=== PATIENT | female | born 1945 | race Caucasian/White ===

== ENCOUNTER 2019-05-07 05:50 | Observation (INO) ==
--- NOTE | 2019-05-07 06:20 | DR.GENAD ---
HPI Time Seen Time Seen by Provider: 05/07/19 06:20 PCP Primary Care Physician: KENAN HPI Comment HPI Comment: PATIENT IS 73YR OLD FEMALE HERE IN ER AFTER SHE HAD SYNCOPAL EPISODE AND FEEL TWICE. PATIEN IS STILL IMBALANSE AND UNSTEADY CURRENTLY. NO FE OC, DYSURIA OR CHEST PAIN. HISTORY OF DM AND HYPERTENSION. COMPLAINIG OF BACK PAIN AND RIGHT RIB PAIN. HAD VERTIGO ATTACK PREVIOUSLY. Complaint/Symptoms Chief Complaint Doctors Comments: FELL, SYNCOPAL EPIDSODE. Chief Complaint:: PT IN ED VIA WHEELCHAIR WITH C/O PASSING OUT AND FALLING. PT STATES SHE GOT UP TO GO TO THE BATHROOM AND CHECK BLOOD SUGAR AND PASSED OUT AFTER COMING OUT OF BATHROOM. GOT UP AND PASSED OUT AND FELL AGAIN. Nurses notes reviewed Nurses Notes Review: Yes Source History Provided: Patient and Family Member Mode of Arrival Mode of Arrival: Wheelchair Timing Onset of Chief Complaint: 05/07/19 Came on: Suddenly Duration Duration: Since Onset Duration: Hours Severity Severity: Moderate (BACK PAIN.) Modifying Factors Worsens:: MOVEMENT Improves:: REST. Associated Signs and Symptoms Associated Signs and Symptoms: ATAXIA. Other History Other History: HTN, DM. PMH PMH Past Medical History: Yes Past Medical History: Arthritis, Diabetes and Hypertension Past Surgical History: Yes Surgical History: Mastectomy Past Surgical History Comment: RIGHT EYE RIGHT MASTECTOMY Family History History of Family Medical Conditions: Yes Family Medical History: Diabetes Mellitus, Cancer, [place], Coronary Artery Disease, Heart Failure and Hypertension Social History Does patient currently use any type of tobacco product: No Have you used tobacco products in the last 12 months: No Type of Tobacco Use: None Does any household member use tobacco: No Alcohol Use: None Do you use any recreational Drugs:: No Lives With: Family Lives Where: Home infectious screening In the last 2 months have you had wt loss of >10#?: NO Have you had fever, night sweats or hemotysis?: No Have you traveled outside the country in the last 6 months?: No Isolation: Standard ROS Review of Systems Constitutional: See HPI, Weakness and Fatigue; negative Fever Eyes: No Symptoms Reported and See HPI; negative Eye Pain, Blurred Vision, Photophobia and Diplopia ENTM: See HPI and Ear Pain (left ear pain); negative Nose Discharge, Nose Con gestion and Throat Pain Respiratoy: No Symptoms Reported, See HPI and Short of Breath (on exacertion); negative Wheezing Cardiovascular: No Symptoms Reported Gastrointestinal/Abdominal: No Symptoms Reported and See HPI; negative Abdominal Pain, Constipation, Diarrhea, Nausea and Vomiting Genitourinary: No Symptoms Reported and See HPI; negative Dysuria, Frequency and Hematuria Neurological: See HPI and Weakness; negative Headache and Dizziness Musculoskeletal: See HPI, Back Pain (UPPER AND LOWER BACK PAIN.) and Rib(s) (LEFT LOWER RIB CAGE PAIN) Integumentary: No Symptoms Reported and See HPI; negative Change in Color, Rash and Juandice Hematologic/Lymphatic: No Symptoms Reported and See HPI Endocrine: No Symptoms Reported and See HPI; negative Increased Thirst, Increased Urine and Decreased Appetite Psychiatric: No Symptoms Reported and See HPI All Other Systems: Reviewed and Negative PE Vital Signs Vitals: Temperature 97.8 F Pulse Rate 72 Respiratory Rate 20 Blood Pressure 156/73 O2 Sat by Pulse Oximetry 99 General Limitations: No Limitations General Appearance: Alert and In No Apparent Distress Head Head Exam: Normal Inspection Eyes Eye exam: Normal Appearance and PERRL; negative Scleral Icterus and Conjunctival Injection ENT ENT Exam: Normal Exam, Normal Oropharynx, Normal External Ear Exam and TM's Normal Bilaterally External Ear Exam: Normal External Inspection; negative Mastoid Tenderness TM/Canal Exam: Bilateral: Normal Nose Exam: Normal Nose Exam; negative Sinus Tenderness, Nasal Deviation and Septal Hematoma Mouth Exam: Normal Inspection; negative Lip Swelling and Tongue Swelling Throat Exam: Normal Inspection; negative Tonsillar Erythema, Tonsillomegaly and Tonsillar Exudate Neck Neck Exam: Normal Inspection and Trachea Midline; negative Tenderness and Lymphadenopathy Chest Chest Inspection: Normal Inspection and Symmetric Chest Wall Rise; negative Tenderness Respiratory Respiratory Exam: Normal Lung Sounds Bilat; negative Accessory Muscle Use, Chest Wall Tenderness and Respiratory Distress Respiratory Exam: Bilateral: Rhonchi and Lower: Rhonchi Cardiovascular Cardiovascular Exam: Regular Rate, Normal Rhythm and Normal Heart Sounds; negative Systolic Murmur and Diastolic Murmur Abdominal Exam Abdominal Exam: Normal Inspection, Normal Bowel Sounds and Soft; negative Tenderness Extremities Extremities Exam: Normal Inspection and Normal Capillary Refill; negative Tenderness and Calf Tenderness Back Back Exam: Normal Inspection and Other (SACRAL AND LEFT UPPER T SPINE TENDERNESS.) Neurologic Neurological Exam: Alert, Oriented X3, CN II-XII Intact and Normal Gait (ATAXIA, IMBALANCE.) Psychiatric Psychiatric Exam: Normal Affect and Normal Mood Skin Skin Exam: Warm, Dry, Intact and Normal Color MDM Additional Information Additional Information Obtained From: Family Differential Diagnosis Differential Diagnosis: SYNCOPAL EPISODE, ATAXIA, BACK PAIN, HYPOGLYCEMIA. COURSE Treatment Treatment: SEE ORDERS. BLOOD GLUCOSE NOT LOW. Consultation Consultation Comments: DISCUSSED PATIENT WITH DR. GRAYSON. HE WILL ADMIT PATIENT. Education/Counseling Education/Counseling: Patient and Family Educated On: Diagnosis ROR Labs Reviewed Laboratory Results Reviewed?: Yes Result Diagrams: 05/07/19 06:52 05/07/19 06:52 Laboratory: WBC 9.5 X10^3/uL (3.6-10.0) 05/07/19 06:52 RBC 4.45 X10^6/uL (3.5-5.4) 05/07/19 06:52 Hgb 13.0 g/dL (12.0-16.0) 05/07/19 06:52 Hct 37.8 % (36.0-47.0) 05/07/19 06:52 MCV 84.9 fL (80.0-100.0) 05/07/19 06:52 MCH 29.2 pg (27.0-34.0) 05/07/19 06:52 MCHC 34.5 g/dL (33.0-35.0) 05/07/19 06:52 RDW 12.7 % (11.6-16.5) 05/07/19 06:52 Plt Count 321 X10^3/uL (150.0-450.0) 05/07/19 06:52 MPV 8.8 fL (7.4-11.0) 05/07/19 06:52 Neut % (Auto) 78.5 % (42.0-75.0) H 05/07/19 06:52 Lymph % (Auto) 13.3 % (21.0-51.0) L 05/07/19 06:52 Love % (Auto) 6.3 % (0.0-13.0) 05/07/19 06:52 Eos % (Auto) 1.5 % (0.9-2.9) 05/07/19 06:52 Baso % (Auto) 0.4 % (0.2-1.0) 05/07/19 06:52 Neut # (Auto) 7.4 x10^3/uL (2.2-4.8) H 05/07/19 06:52 Lymph # (Auto) 1.3 X10^3/uL (1.3-2.9) 05/07/19 06:52 Love # (Auto) 0.6 x10^3/uL (0.3-0.8) 05/07/19 06:52 Eos # (Auto) 0.1 x10^3/uL (0.0-0.2) 05/07/19 06:52 Baso # (Auto) 0.0 X10^3/uL (0.0-0.1) 05/07/19 06:52 Absolute Nucleated RBC 0.0 /100WBC 05/07/19 06:52 Sodium 136 mmol/L (136-145) 05/07/19 06:52 Corrected Sodium TNP 05/07/19 06:52 Potassium 3.8 mmol/L (3.5-5.1) 05/07/19 06:52 Chloride 100 mmol/L (98-107) 05/07/19 06:52 Carbon Dioxide 26.2 mmol/L (21-32) 05/07/19 06:52 BUN 12 mg/dL (7-18) 05/07/19 06:52 Creatinine 1.11 mg/dL (0.55-1.02) H 05/07/19 06:52 Est GFR (MDRD) Af Amer > 60 (>60) 05/07/19 06:52 Est GFR (MDRD) Non-Af 51 (>60) L 05/07/19 06:52 Glucose 106 mg/dL (65-99) H 05/07/19 06:52 Calcium 8.6 mg/dL (8.5-10.1) 05/07/19 06:52 Corrected Calcium TNP 05/07/19 06:52 Total Bilirubin 0.50 mg/dL (0.2-1.0) 05/07/19 06:52 AST 23 Units/L (15-37) 05/07/19 06:52 ALT 19 Units/L (12-78) 05/07/19 06:52 Alkaline Phosphatase 49 Units/L (46-116) 05/07/19 06:52 Creatine Kinase 265 Units/L (26-192) H 05/07/19 06:52 CK-MB (CK-2) 10.1 ng/mL (0-4.0) H* 05/07/19 06:52 CK/CKMB % Calc 3.8 % (<4) 05/07/19 06:52 Troponin I < 0.02 ng/mL (0-1.5) 05/07/19 06:52 Total Protein 7.3 g/dL (6.4-8.2) 05/07/19 06:52 Albumin 3.5 g/dL (3.4-5.0) 05/07/19 06:52 Globulin 3.8 g/dL (2.5-4.5) 05/07/19 06:52 Albumin/Globulin Ratio 0.9 Ratio (1.1-2.1) L 05/07/19 06:52 XRAY XRAY Interpreted by: Radiologist XRAY Findings: REPORT NOTED AND DISCUSSED WITH PATIENT AND FAMILY. EKG Rate: 75 Husser: Normal Rhythm: NSR Block: None Hypertrophy: LVH ST: Old, Infarct and Nonsp (ABNORMAL R-WAVE PROGRESSION.) Opioid Opioid Risk Tool Age (Lenny box if 16-45): No History of Preadolescent Sexual Abuse: No Total: 0 Total Score Risk Category: Low Risk Copyright: Elroy POE predicting aberrant behaviors Diagnosis Discharge Problem: Ataxia Episode of syncope Qualifiers: Syncope type: unspecified Qualified Code(s): R55 - Syncope and collapse Back pain Qualifiers: Back pain location: low back pain Chronicity: acute Back pain laterality: bilateral Sciatica presence: without sciatica Qualified Code(s): M54.5 - Low back pain Instructions Forms: Excuse From Work Patient Portal
[2019-05-07 06:56] LABS: BASOPHILS % (AUTO) 0.4 % (0.2-1.0); EOSINOPHILS # (AUTO) 0.1 x10^3/uL (0.0-0.2); EOSINOPHILS % (AUTO) 1.5 % (0.9-2.9); HEMATOCRIT 37.8 % (36.0-47.0); LYMPHOCYTES # (AUTO) 1.3 X10^3/uL (1.3-2.9); LYMPHOCYTES % (AUTO) 13.3 % (21.0-51.0); MEAN CORPUSCULAR HEMOGLOBIN 29.2 pg (27.0-34.0); MEAN CORPUSCULAR HGB CONC 34.5 g/dL (33.0-35.0); MEAN CORPUSCULAR VOLUME 84.9 fL (80.0-100.0); MEAN PLATELET VOLUME 8.8 fL (7.4-11.0); MONOCYTES # (AUTO) 0.6 x10^3/uL (0.3-0.8); MONOCYTES % (AUTO) 6.3 % (0.0-13.0); NEUTROPHILS # (AUTO) 7.4 x10^3/uL (2.2-4.8); NEUTROPHILS % (AUTO) 78.5 % (42.0-75.0); PLATELET COUNT 321 X10^3/uL (150.0-450.0); RED BLOOD COUNT 4.45 X10^6/uL (3.5-5.4); RED CELL DISTRIBUTION WIDTH 12.7 % (11.6-16.5); WHITE BLOOD COUNT 9.5 X10^3/uL (3.6-10.0)
[2019-05-07 07:13] LABS: BLOOD UREA NITROGEN 12 mg/dL (7-18); CALCIUM 8.6 mg/dL (8.5-10.1); CARBON DIOXIDE 26.2 mmol/L (21-32); CHLORIDE 100 mmol/L (98-107); CREATININE 1.11 mg/dL (0.55-1.02); SODIUM 136 mmol/L (136-145); TROPONIN I < 0.02 ng/mL (0-1.5); eGFR NON BLACK RACES 51 (>60)
--- NOTE | 2019-05-07 07:22 | CT ---
HISTORYSyncope, fall, head injurySTUDYHEAD (TRAUMA)Technique: Axial noncontrast images with coronal and sagittal reformats. Dose reduction procedures were used with mA/kv adjusted for body size.COMPARISONNoneFINDINGSThe ventricles, cortical sulci, and other CSF spaces are mildly enlarged consistent with mild generalized atrophy likely age related. There are no areas of abnormal attenuation to suggest recent or remote CVA, hemorrhage, contusion, mass lesion, or extra-axial fluid collection. The calvarium is intact.IMPRESSIONNo acute intracranial abnormalityAtrophy likely age relatedElectronically signed by: MICHAELA PANDEY (May 07, 2019 07:21:11)
--- NOTE | 2019-05-07 07:25 | CT ---
HISTORYFall, back painSTUDYTHORACIC SPINE W/O CON technique: Axial noncontrast images with coronal and sagittal reformats. Dose reduction procedures were used with mA/kv adjusted for body size.COMPARISONNoneFINDINGSThe bones are osteopenic. The alignment is normal. There is mild compression of the superior endplate of T5 age indeterminate. Very mild anterior wedge compression T7 age indeterminate. The remainder of the vertebral bodies are of average height. Disc spaces are preserved except for narrowing at T9-10 and T10-11 levels. The pedicles, spinous processes, and posterior elements are intact as are the visualized posterior ribs. The neural foramina are patent. The joints are normal.IMPRESSIONMild compression superior endplate of T5 age indeterminateMinimal anterior wedge compression T7 age indeterminateOsteopeniaDegenerative disc disease T9-10 and T10-11 levelsElectronically signed by: MICHAELA PANDEY (May 07, 2019 07:24:15)
--- NOTE | 2019-05-07 07:28 | CT ---
HISTORYFall, low back painSTUDYLUMBAR SPINE W/O CONTechnique: Axial noncontrast images with coronal and sagittal reformats. Dose reduction procedures were used with mA/kv adjusted for body size.COMPARISONNoneFINDINGSThe bones are osteopenic. The alignment is normal. The vertebral bodies are of average height. No compression fractures are identified. The pedicles, spinous processes, and posterior elements are intact as are the visualized portions of the sacrum and SI joints. The disc levels are evaluated as follows:L1-2 level: No evidence for compressive disc disease. The neural foramina are patent. The joints are normal.L2-3 level: Mild concentric disc bulging effaces the thecal sac and contributes to mild lateral recess narrowing bilaterally. The joints are normal.L3-4 level: Concentric disc bulging effaces the thecal sac and contributes to mild to moderate lateral recess narrowing bilaterally. The joints are normal.L4-5 level: Broad-based disc bulging effaces the thecal sac and contributes along with bilateral facet arthropathy to lateral recess and foraminal narrowing.L5-S1 level: No evidence for compressive disc disease. The neural foramina are patent. Bilateral facet arthropathy is present.IMPRESSIONAs aboveElectronically signed by: MICHAELA PANDEY (May 07, 2019 07:27:24)
[2019-05-07 07:37] LABS: ALANINE AMINOTRANSFERASE 19 Units/L (12-78); ALBUMIN 3.5 g/dL (3.4-5.0); ALKALINE PHOSPHATASE 49 Units/L (46-116); ASPARTATE AMINO TRANSFERASE 23 Units/L (15-37); CKMB % 3.8 % (<4); CREATINE KINASE 265 Units/L (26-192); TOTAL PROTEIN 7.3 g/dL (6.4-8.2)
[2019-05-07 07:43] LABS: CREATINE KINASE MB 10.1 ng/mL (0-4.0)
[2019-05-07 09:04] LABS: BILIRUBIN,URINE NEGATIVE (NEGATIVE); BLOOD/HEMOGLOBIN,URINE NEGATIVE (NEGATIVE); GLUCOSE, URINE NEGATIVE (NEGATIVE); KETONES,URINE NEGATIVE (NEGATIVE); LEUKOCYTE ESTERASE ,URINE 1+ (NEGATIVE); NITRITES,URINE NEGATIVE (NEGATIVE); PROTEIN,URINE 1+ (NEGATIVE); UROBILINOGEN,URINE NORMAL (NORMAL)
[2019-05-07 09:20] LABS: APPEARANCE,URINE CLEAR (CLEAR); COLOR,URINE YELLOW (YELLOW)
[2019-05-07 09:21] LABS: BACTERIA,URINE TRACE /HPF (NEGATIVE); RBC,URINE 0-2 /HPF (0-3); SQUAMOUS EPITHELIAL CELL,UR MODERATE /HPF (NEGATIVE)
[2019-05-07 11:45] VITALS: BMI 20.4
[2019-05-07] MEDS: NS 1000 ML 1,000 ML IV SCH (12:00)
[2019-05-07] MEDS ORDERED: GLUCOPHAGE ONE ×2 (12:19→21:18)
[2019-05-07] MEDS: ASPIRIN EC 81 MG PO SCH (12:25)
[2019-05-07] MEDS: GLUCOPHAGE PO SCH ×2 (12:26→21:20)
[2019-05-07] MEDS: TIMOPTIC 0.5% EYE DROPS OP SCH ×2 (12:41→21:20)
[2019-05-07] MEDS: LANTUS SC SCH ×2 (13:19→20:03)
[2019-05-07 13:29] LABS: CKMB % 2.3 % (<4); CREATINE KINASE 363 Units/L (26-192); TROPONIN I < 0.02 ng/mL (0-1.5)
[2019-05-07 13:32] LABS: CREATINE KINASE MB 8.3 ng/mL (0-4.0)
--- NOTE | 2019-05-07 14:25 | DR.GENAD ---
HPI Time Seen Time Seen by Provider: 05/07/19 06:20 PCP Primary Care Physician: KENAN Complaint/Symptoms Chief Complaint:: PT IN ED VIA WHEELCHAIR WITH C/O PASSING OUT AND FALLING. PT STATES SHE GOT UP TO GO TO THE BATHROOM AND CHECK BLOOD SUGAR AND PASSED OUT AFTER COMING OUT OF BATHROOM. GOT UP AND PASSED OUT AND FELL AGAIN. Nurses notes reviewed Nurses Notes Review: Yes Source History Provided: Patient and Family Member Mode of Arrival Mode of Arrival: Wheelchair Timing Onset of Chief Complaint: 05/07/19 Came on: Suddenly Duration Duration: Since Onset Duration: Hours Severity Severity: Moderate (BACK PAIN.) Modifying Factors Worsens:: MOVEMENT Improves:: REST. Associated Signs and Symptoms Associated Signs and Symptoms: ATAXIA. Other History Other History: HTN, DM. PMH PMH Past Medical History: Yes Past Medical History: Arthritis, Diabetes and Hypertension Past Surgical History: Yes Surgical History: Mastectomy Past Surgical History Comment: RIGHT EYE RIGHT MASTECTOMY Family History History of Family Medical Conditions: Yes Family Medical History: Diabetes Mellitus, Cancer, [place], Coronary Artery Disease, Heart Failure and Hypertension Social History Does patient currently use any type of tobacco product: No Have you used tobacco products in the last 12 months: No Type of Tobacco Use: None Does any household member use tobacco: No Alcohol Use: None Do you use any recreational Drugs:: No Lives With: Family Lives Where: Home infectious screening In the last 2 months have you had wt loss of >10#?: NO Have you had fever, night sweats or hemotysis?: No Have you traveled outside the country in the last 6 months?: No Isolation: Standard PE Vital Signs Vitals: Temperature 97.8 F Pulse Rate 72 Respiratory Rate 20 Blood Pressure 156/73 O2 Sat by Pulse Oximetry 99 ROR Labs Reviewed Result Diagrams: 05/07/19 06:52 05/07/19 06:52 Laboratory: WBC 9.5 X10^3/uL (3.6-10.0) 05/07/19 06:52 RBC 4.45 X10^6/uL (3.5-5.4) 05/07/19 06:52 Hgb 13.0 g/dL (12.0-16.0) 05/07/19 06:52 Hct 37.8 % (36.0-47.0) 05/07/19 06:52 MCV 84.9 fL (80.0-100.0) 05/07/19 06:52 MCH 29.2 pg (27.0-34.0) 05/07/19 06:52 MCHC 34.5 g/dL (33.0-35.0) 05/07/19 06:52 RDW 12.7 % (11.6-16.5) 05/07/19 06:52 Plt Count 321 X10^3/uL (150.0-450.0) 05/07/19 06:52 MPV 8.8 fL (7.4-11.0) 05/07/19 06:52 Neut % (Auto) 78.5 % (42.0-75.0) H 05/07/19 06:52 Lymph % (Auto) 13.3 % (21.0-51.0) L 05/07/19 06:52 Dickinson % (Auto) 6.3 % (0.0-13.0) 05/07/19 06:52 Eos % (Auto) 1.5 % (0.9-2.9) 05/07/19 06:52 Baso % (Auto) 0.4 % (0.2-1.0) 05/07/19 06:52 Neut # (Auto) 7.4 x10^3/uL (2.2-4.8) H 05/07/19 06:52 Lymph # (Auto) 1.3 X10^3/uL (1.3-2.9) 05/07/19 06:52 Dickinson # (Auto) 0.6 x10^3/uL (0.3-0.8) 05/07/19 06:52 Eos # (Auto) 0.1 x10^3/uL (0.0-0.2) 05/07/19 06:52 Baso # (Auto) 0.0 X10^3/uL (0.0-0.1) 05/07/19 06:52 Absolute Nucleated RBC 0.0 /100WBC 05/07/19 06:52 Sodium 136 mmol/L (136-145) 05/07/19 06:52 Corrected Sodium TNP 05/07/19 06:52 Potassium 3.8 mmol/L (3.5-5.1) 05/07/19 06:52 Chloride 100 mmol/L (98-107) 05/07/19 06:52 Carbon Dioxide 26.2 mmol/L (21-32) 05/07/19 06:52 BUN 12 mg/dL (7-18) 05/07/19 06:52 Creatinine 1.11 mg/dL (0.55-1.02) H 05/07/19 06:52 Est GFR (MDRD) Af Amer > 60 (>60) 05/07/19 06:52 Est GFR (MDRD) Non-Af 51 (>60) L 05/07/19 06:52 Glucose 106 mg/dL (65-99) H 05/07/19 06:52 Calcium 8.6 mg/dL (8.5-10.1) 05/07/19 06:52 Corrected Calcium TNP 05/07/19 06:52 Total Bilirubin 0.50 mg/dL (0.2-1.0) 05/07/19 06:52 AST 23 Units/L (15-37) 05/07/19 06:52 ALT 19 Units/L (12-78) 05/07/19 06:52 Alkaline Phosphatase 49 Units/L (46-116) 05/07/19 06:52 Creatine Kinase 265 Units/L (26-192) H 05/07/19 06:52 CK-MB (CK-2) 10.1 ng/mL (0-4.0) H* 05/07/19 06:52 CK/CKMB % Calc 3.8 % (<4) 05/07/19 06:52 Troponin I < 0.02 ng/mL (0-1.5) 05/07/19 06:52 Total Protein 7.3 g/dL (6.4-8.2) 05/07/19 06:52 Albumin 3.5 g/dL (3.4-5.0) 05/07/19 06:52 Globulin 3.8 g/dL (2.5-4.5) 05/07/19 06:52 Albumin/Globulin Ratio 0.9 Ratio (1.1-2.1) L 05/07/19 06:52 Opioid Opioid Risk Tool Age (Lenny box if 16-45): No History of Preadolescent Sexual Abuse: No Total: 0 Total Score Risk Category: Low Risk Copyright: Elroy POE predicting aberrant behaviors Diagnosis Discharge Problem: Ataxia Episode of syncope Qualifiers: Syncope type: unspecified Qualified Code(s): R55 - Syncope and collapse Back pain Qualifiers: Back pain location: low back pain Chronicity: acute Back pain laterality: bilateral Sciatica presence: without sciatica Qualified Code(s): M54.5 - Low back pain Instructions Forms: Excuse From Work Patient Portal
[2019-05-07 19:40] LABS: CKMB % 1.3 % (<4); CREATINE KINASE 282 Units/L (26-192); CREATINE KINASE MB 3.6 ng/mL (0-4.0); TROPONIN I < 0.02 ng/mL (0-1.5)
[2019-05-08 00:46] LABS: BILIRUBIN,URINE NEGATIVE (NEGATIVE); BLOOD/HEMOGLOBIN,URINE 1+ (NEGATIVE); GLUCOSE, URINE NEGATIVE (NEGATIVE); KETONES,URINE NEGATIVE (NEGATIVE); LEUKOCYTE ESTERASE ,URINE 2+ (NEGATIVE); NITRITES,URINE NEGATIVE (NEGATIVE); PROTEIN,URINE NEGATIVE (NEGATIVE); UROBILINOGEN,URINE 1+ (NORMAL)
[2019-05-08 01:03] LABS: APPEARANCE,URINE CLEAR (CLEAR); BACTERIA,URINE NEGATIVE /HPF (NEGATIVE); COLOR,URINE DARK YELLOW (YELLOW); RBC,URINE 0-2 /HPF (0-3); SQUAMOUS EPITHELIAL CELL,UR FEW /HPF (NEGATIVE)
[2019-05-08 06:31] LABS: BASOPHILS % (AUTO) 0.5 % (0.2-1.0); EOSINOPHILS # (AUTO) 0.2 x10^3/uL (0.0-0.2); EOSINOPHILS % (AUTO) 3.3 % (0.9-2.9); HEMATOCRIT 35.1 % (36.0-47.0); HEMOGLOBIN 11.9 g/dL (12.0-16.0); LYMPHOCYTES # (AUTO) 2.1 X10^3/uL (1.3-2.9); LYMPHOCYTES % (AUTO) 32.3 % (21.0-51.0); MEAN CORPUSCULAR HEMOGLOBIN 29.1 pg (27.0-34.0); MEAN CORPUSCULAR VOLUME 85.6 fL (80.0-100.0); MEAN PLATELET VOLUME 8.7 fL (7.4-11.0); MONOCYTES # (AUTO) 0.7 x10^3/uL (0.3-0.8); MONOCYTES % (AUTO) 10.5 % (0.0-13.0); NEUTROPHILS # (AUTO) 3.4 x10^3/uL (2.2-4.8); NEUTROPHILS % (AUTO) 53.4 % (42.0-75.0); PLATELET COUNT 287 X10^3/uL (150.0-450.0); RED CELL DISTRIBUTION WIDTH 12.7 % (11.6-16.5); WHITE BLOOD COUNT 6.4 X10^3/uL (3.6-10.0)
[2019-05-08] MEDS: NS 1000 ML 1,000 ML IV SCH ×2 (06:36→15:05)
[2019-05-08 07:04] LABS: ALANINE AMINOTRANSFERASE 15 Units/L (12-78); ALBUMIN 3.1 g/dL (3.4-5.0); ALKALINE PHOSPHATASE 41 Units/L (46-116); ASPARTATE AMINO TRANSFERASE 17 Units/L (15-37); BLOOD UREA NITROGEN 10 mg/dL (7-18); CALCIUM 8.1 mg/dL (8.5-10.1); CARBON DIOXIDE 25.7 mmol/L (21-32); CHLORIDE 103 mmol/L (98-107); COR CA(FOR HYPOALB) 8.8 mg/dL (8.5-10.1); CREATININE 1.02 mg/dL (0.55-1.02); MAGNESIUM 1.9 mg/dL (1.7-2.9); SODIUM 136 mmol/L (136-145); TOTAL PROTEIN 6.5 g/dL (6.4-8.2); eGFR NON BLACK RACES 57 (>60)
[2019-05-08] MEDS ORDERED: TORADOL 15 MG VIAL IVP PRN (08:31)
--- NOTE | 2019-05-08 08:37 | DR.H&P ---
H&P - History & Physical for Day of: H&P Date: 05/07/19 - Chief Complaint Chief Complaint: SYNCOPE, FALLS, BACK PAIN, RIGHT RIB PAIN - History of Present Illness History of Present Illness: IS A 73 YEAR OLD PATIENT OF OURS WHO PRESENTED TO THE ER WITH COMPLAINTS OF A SYNCOPAL EPISODE AND FELL TWICE AT HOME. FAMILY REPORTS THAT SHE CONTINUES TO HAVE AN UNSTEADY GAIT. SHE COMPLAINTS OF BACK PAIN AND RIGHT RIB PAIN. ON ARRIVAL TO THE ER, VITALS . WERE 97.8-93-20-100%-156/73. LABS WERE OBTAINED. ABNORMAL LAB VALUES INCLUDE THE FOLLOWING: CREATININE 1.11, GLUCOSE 106, CREATINE KINASE 265, CK-MB 10.1. URINALYSIS WAS OBTAINED AND REVEALED WBC 0-2, RBC 0-2, LEUKOCYTES 1+, BACTERIA TRACE. A BRAIN CT WAS OBTAINED AND REVEALED: NO ACUTE INTRACRANIAL ABNORMALITY. ATROPHY LIKELY AGE RELATED. A LUMBAR SPINE CT REVEALED MULTI-LEVEL BULGING DISC. THORACIC SPINE CT REVEALED: Mild compression superior endplate of T5 age indeterminate. Minimal anterior wedge compression T7 age indeterminate. Osteopenia. Degenerative disc disease T9-10 and T10-11 levels. EKG REVEALED: SINUS RHYTHM WITH HR 75. SHE WAS ADMITTED FOR FURTHER EVALUATION AND TREATMENT OF SYNCOPAL EPISODE, ATAXIA, AND BACK PAIN. SHE WAS STARTED ON NORMAL SALINE AT [facility], TORADOL 15MG IV Q6H PRN, AND HOME MEDICATIONS WERE RESUMED. WE WILL OBTAIN SERIAL CARDIAC ENZYMES AND EKGS. WE WILL ALSO OBTAIN AN ECHO, CAROTID DOPPLER, AND A BRAIN MRI WITHOUT CONTRAST. OTHERWISE, WE PLAN TO FOLLOW UP WITH AM LABS AND CONTINUE TO MONITOR. - Past Medical History Past Medical History: Hypertension, Diabetes, Arthritis - Past Surgical History Surgical History: Mastectomy - Family History Family Medical History: Diabetes Mellitus, Cancer, [place], Coronary Artery Disease, Heart Failure, Hypertension - Social History Does patient currently use any type of tobacco product: No Have you used tobacco products in the last 12 months: No Type of Tobacco Use: None Does any household member use tobacco: No Alcohol Use: None Drug Use: None - Medications Home Medications: morphine Allergy (Verified 05/07/19 06:27) CONTINUE taking the following medications aspirin [Aspirin Low Dose] 81 mg PO DAILY 05/07/19 [History] insulin glargine [Lantus Solostar U-100 Insulin] 20 unit SUBCUT QACDINNER 05/07/19 [History] insulin lispro protamin-lispro [Humalog Mix 75-25 KwikPen] 20 unit SUBCUT QACLUNCH 05/07/19 [History] lisinopril 20 mg PO DAILY 05/07/19 [History] lovastatin 20 mg PO HS 05/07/19 [History] metformin 500 mg PO DAILY 05/07/19 [History] timolol maleate 1 drp OPHTHALMIC (EYE) BID 05/07/19 [History] - Review of Systems Constitutional: See HPI, Weakness, Malaise Eyes: No Symptoms Reported ENT: No Symptoms Reported Respiratory: No Symptoms Reported Cardiovascular: Light Headedness Gastrointestinal: No Symptoms Reported Genitourinary: No Symptoms Reported Musculoskeletal: See HPI, Back Pain, Other (RIGHT RIB PAIN ) Skin: No Symptoms Reported Neurological: See HPI, Weakness - Physical Exam Vital Signs: Temperature 99.1 F Pulse Rate [Right Brachial] 73 Pulse Rate 72 Respiratory Rate 18 Blood Pressure [Right Arm] 131/60 Blood Pressure 156/73 O2 Sat by Pulse Oximetry 97 Oriented: Normal Eyes: Normal Ear: Normal Nose: Normal Throat: Normal Respiratory: Diminished Throughout Cardiovascular: Normal. negative: S3, S4, Murmur : Normal Auscultation: Bowel Sounds: Normal Palpation: Normal Tenderness: Normal Skin: Normal Musculoskeletal: Right (RIGHT RIB PAIN ), Back:Thoracic, Back:Lumbar, Tender Psychiatric: Normal Mood Description: Calm Affect: Normal Speech Pattern: Clear - Assessment/Plan (1) Episode of syncope Qualifiers: Syncope type: unspecified Qualified Code(s): R55 - Syncope and collapse Status: Acute Plan: ADMIT, IV FLUIDS, CARDIAC ENZYMES AND EKG, CONTINUE TO MONITOR (2) Ataxia Status: Acute (3) Back pain Qualifiers: Back pain location: low back pain Chronicity: acute Back pain laterality: bilateral Sciatica presence: without sciatica Qualified Code(s): M54.5 - Low back pain Status: Acute Plan: TORADOL 15MG IV Q6H PRN, CONTINUE TO MONITOR - Allergies Allergies/Adverse Reactions: Allergies Allergy/AdvReac Type Severity Reaction Status Date / Time morphine Allergy Verified 05/07/19 06:27
[2019-05-08] MEDS ORDERED: GLUCOPHAGE ONE ×2 (08:45→19:58)
[2019-05-08] MEDS: TIMOPTIC 0.5% EYE DROPS OP SCH ×2 (09:19→21:10)
[2019-05-08] MEDS: GLUCOPHAGE PO SCH ×2 (09:20→21:10)
[2019-05-08] MEDS: ASPIRIN EC 81 MG PO SCH (09:20)
[2019-05-08] MEDS ORDERED: ZESTRIL TAB 20 MG ONE (11:09)
[2019-05-08] MEDS: ZESTRIL TAB 20 MG PO SCH (12:13)
--- NOTE | 2019-05-08 13:17 | VAS ---
HISTORYDIZZINESS, SOB, SYNCOPEConcern for carotid artery stenosis. [Carotid atherosclerosis].EXAM: BILATERAL DOPPLER CAROTID ULTRASOUND EXAMTechnique: Multiple johnson scale and color flow Doppler images of the right and left carotid arterial system were obtained. The vertebral arterial system was evaluated as well.Findings:Nonocclusive color flow Doppler is seen throughout the right and left carotid arterial system. No hemodynamically significant carotid arterial stenosis is seen based on velocity criteria. There is [mild] atherosclerosis and [atherosclerotic] plaque formation of the bilateral carotid bulbs and ICAs with associated intimal thickening but [without] evidence for high-grade stenosis (>70%) or occlusion of the carotid arteries.The right vertebral artery demonstrates antegrade flow. The left vertebral artery was not well assessed on this exam.IMPRESSION:[Mild] atherosclerosis and [atherosclerotic] plaque formation of the bilateral carotid bulbs and [in both] ICAs with associated carotid intimal thickening but without evidence for high-grade stenosis or occlusion of the carotid arteries, based on Doppler velocity criteria.Appropriate, antegrade, right vertebral arterial flow.Peak right ICA velocity: [70] centimeter/seconds.Peak right CCA velocity: [107] centimeter/seconds.Peak left ICA velocity: [82] centimeter/seconds.Peak left CCA velocity: [100] centimeter/seconds.Right ICA to CCA ratio: [0.9].Left ICA to CCA ratio: [0.8].Electronically signed by: LIDIA FOLEY III (May 08, 2019 13:15:46)
[2019-05-08] MEDS ORDERED: MAALOX or MYLANTA PO PRN (17:21)
[2019-05-08] MEDS ORDERED: MAALOX or MYLANTA ONE (17:23)
[2019-05-08] MEDS ORDERED: LOVASTATIN 20 MG PO SCH (21:00)
[2019-05-08] MEDS ORDERED: LANTUS SC SCH (21:00)
[2019-05-09] MEDS: NS 1000 ML 1,000 ML IV SCH (02:49)
[2019-05-09 06:57] LABS: BASOPHILS # (AUTO) 0.1 X10^3/uL (0.0-0.1); BASOPHILS % (AUTO) 0.9 % (0.2-1.0); EOSINOPHILS # (AUTO) 0.3 x10^3/uL (0.0-0.2); EOSINOPHILS % (AUTO) 4.5 % (0.9-2.9); HEMATOCRIT 33.9 % (36.0-47.0); HEMOGLOBIN 11.8 g/dL (12.0-16.0); LYMPHOCYTES % (AUTO) 31.6 % (21.0-51.0); MEAN CORPUSCULAR HEMOGLOBIN 29.7 pg (27.0-34.0); MEAN CORPUSCULAR HGB CONC 34.8 g/dL (33.0-35.0); MEAN CORPUSCULAR VOLUME 85.2 fL (80.0-100.0); MEAN PLATELET VOLUME 8.9 fL (7.4-11.0); MONOCYTES # (AUTO) 0.5 x10^3/uL (0.3-0.8); MONOCYTES % (AUTO) 8.7 % (0.0-13.0); NEUTROPHILS # (AUTO) 3.4 x10^3/uL (2.2-4.8); NEUTROPHILS % (AUTO) 54.3 % (42.0-75.0); PLATELET COUNT 275 X10^3/uL (150.0-450.0); RED BLOOD COUNT 3.98 X10^6/uL (3.5-5.4); RED CELL DISTRIBUTION WIDTH 12.7 % (11.6-16.5); WHITE BLOOD COUNT 6.2 X10^3/uL (3.6-10.0)
[2019-05-09 07:29] LABS: ALANINE AMINOTRANSFERASE 15 Units/L (12-78); ALKALINE PHOSPHATASE 40 Units/L (46-116); ASPARTATE AMINO TRANSFERASE 15 Units/L (15-37); BLOOD UREA NITROGEN 11 mg/dL (7-18); CARBON DIOXIDE 24.6 mmol/L (21-32); CHLORIDE 103 mmol/L (98-107); COR CA(FOR HYPOALB) 8.8 mg/dL (8.5-10.1); CREATININE 0.97 mg/dL (0.55-1.02); SODIUM 136 mmol/L (136-145); TOTAL PROTEIN 6.4 g/dL (6.4-8.2); eGFR NON BLACK RACES 60 (>60)
[2019-05-09] MEDS ORDERED: GLUCOPHAGE ONE (08:25)
[2019-05-09] MEDS ORDERED: ZESTRIL TAB 20 MG ONE (08:25)
[2019-05-09] MEDS: GLUCOPHAGE PO SCH (09:26)
[2019-05-09] MEDS: ASPIRIN EC 81 MG PO SCH (09:27)
[2019-05-09] MEDS: ZESTRIL TAB 20 MG PO SCH (09:27)
[2019-05-09] MEDS: TIMOPTIC 0.5% EYE DROPS OP SCH (09:28)
[2019-05-09 12:32] VITALS: BP 152/70
--- NOTE | 2019-05-09 14:08 | MRI ---
HISTORYSYNCOPE, DIZZINESS, SOBSTUDYBRAIN W/O CONCOMPARISONCT head 05/07/2019.TECHNIQUEMultiplanar multi-sequence MRI of the brain was obtained utilizing standard departmental protocol without.FINDINGSThe ventricles are mildly enlarged with diffuse mild prominence of the cortical sulci. There is no abnormal signal on the diffusion-weighted data set which would suggest any type of acute ischemia. The midline structures unremarkable. The visualized vascular structures show normal flow voids. The 7th and 8th nerve complexes are symmetric and normal signal intensity throughout. There are a few punctate areas of abnormal signal scattered in the periventricular white matter and along the pontine portion of the brainstem. No intracranial hemorrhage or edema is seen. There is no extra-axial fluid collection or mass. The midline structures are unremarkable.IMPRESSIONMild atrophy and mild chronic microischemic changes scattered in the deep white matter and along the brainstem with no acute intracranial abnormality seen.Electronically signed by: CHARISMA MEDLEY (May 09, 2019 14:06:53)
== END 2019-05-09 12:55 | disposition home or self-care (01) ==
LOC: MED/SURG 05:50 → ER 05:50 → MED/SURG 10:00
PROVIDERS: ADMIT Internal Medicine; ATTEND Internal Medicine
CPT/HCPCS: 36415; 70450; 70551; 72128; 72131; 80053; 81001; 82550; 82553; 83735; 84484; 85025; 93005; 93306; 93880; 94760; 97162; 97165; 99284; A4222; G0378; J7030